=== PATIENT | female | born 1975 | race Caucasian/White ===

== ENCOUNTER 2022-05-16 05:41 | Outpatient (CLI) | payer BC ==
[~2022-05-16] VITALS: Ht 165.1 cm; Wt 62.7 kg
[2022-05-20] MEDS ORDERED: LEVO75TA PO (12:13)
[2022-05-20] MEDS ORDERED: VILA20TA PO (12:13)
[2022-05-20] MEDS ORDERED: FENO145T26 PO (12:13)
[2022-05-20] MEDS ORDERED: TRIA1TAB3 PO (12:13)
[2022-05-20] MEDS ORDERED: MINO100T10 PO (12:13)
== END 2022-05-20 12:15 | disposition home or self-care (01) ==
LOC: PREOP 05:41
PROVIDERS: ATTEND Internal Medicine
DX: Z01.818 Encounter for other preprocedural examination (principal)

== ENCOUNTER 2022-05-24 07:50 | Day surgery (SDC) | payer BC ==
--- NOTE | 2022-05-10 10:53 | HISTORY AND PHYSICAL ---
DATE OF SERVICE: 05/24/2022 COLONOSCOPY HISTORY AND PHYSICAL HISTORY OF PRESENT ILLNESS: The patient is a 77-year-old white female referred by Dr. Griffith for consideration for colonoscopy. I had performed colonoscopy on her in 07/2012 at which time, she had no evidence for neoplasia. She is not aware of any family history for colon cancer. There is a strong family history for breast cancer. Her mother at the age of 87 with breast cancer and has had a sister in her late 50s, who had bilateral breast cancer. She reports some intermittent right lower quadrant abdominal pain with some intermittent bloating. She has noted no melena or bright red blood per rectum. She has always been thin and reports no change in weight and energy level has been at baseline. PAST MEDICAL HISTORY: Significant for stable multiple sclerosis. She reports no significant neurological deficits. As I recall longstanding and disconjugate gaze predating her diagnosis of multiple sclerosis. She has had longstanding anxiety, but does not take any medication for this. Currently, her only medication is gabapentin for neuropathic symptoms attributed to her multiple sclerosis. FAMILY HISTORY: As noted in the HPI. 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 She is and her from colon cancer. PAST SURGICAL HISTORY: She reports no past surgeries. REVIEW OF SYSTEMS: CONSTITUTIONAL: Denies night sweats, chills, fever, change in weight. PULMONARY: Denies cough, wheezing or shortness of breath. CARDIOVASCULAR: Denies orthopnea, PND, pedal edema, chest discomfort, or palpitation. GASTROINTESTINAL: As noted in the HPI. PHYSICAL EXAMINATION: GENERAL: Reveals an anxious white female, who appeared to be in no acute distress. VITAL SIGNS: Blood pressure 132/96, weight 92 pounds, which is up 1.2 pounds from nearly 10 years ago. HEENT: Other than disconjugate gaze was unremarkable. Sclerae nonicteric. CHEST: Clear. CARDIOVASCULAR: Reveals a regular rate and rhythm without murmur, S3 or S4. ABDOMEN: Soft, supple without mass, organomegaly or tenderness. No bruits noted. She is thin with no evidence for distention. EXTREMITIES: Reveal no cyanosis, clubbing or edema. ASSESSMENT AND PLAN: The patient is very anxious about colonoscopy, wishing not to go through with the procedure if possible considering no major risk factors in the past, normal colonoscopy 9 years ago. We will obtain stool for occult blood. If it is negative, we will hold off on recommendation. If it is positive, the patient will consent to proceeding. I thank you for the referral of this pleasant lady. DocumentID: [id number] Dictated Date: 05/10/2022 00:00:00 Oven Stripper Date: 05/10/2022 00:42:00 Dictated By: MILLER MYERS MD
--- NOTE | 2022-05-10 11:07 | HISTORY AND PHYSICAL ---
DATE OF SERVICE: 05/24/2022 COLONOSCOPY HISTORY AND PHYSICAL DATE OF ADMISSION: 05/24/2022 HISTORY OF PRESENT ILLNESS: The patient is a 46-year-old white female referred for her first screening colonoscopy. She reports her father has had significant problems with diverticulitis. She has had mother with bowel issues, sounds suspicious for irritable bowel as well as one brother. She is not aware if anybody has been diagnosed with colon polyps and she is not aware of any colon cancer in the family. She denies bright red blood per rectum, melena, change in bowel habits or change in weight, intermittently getting a little bit worse. She does not feel that she does empty completely in regard to bowel movements, sometimes having to strain, but does not typically pass hard stool. PAST SURGICAL HISTORY: Significant for hysterectomy. She denies any urinary incontinence problems. PAST SURGICAL HISTORY: Significant for total abdominal hysterectomy for benign reasons. PAST MEDICAL HISTORY: Significant for hypertriglyceridemia and essential hypertension as well as major depressive disorder and hypothyroidism. FAMILY HISTORY: Father living at the age of 80 with a history of diverticulitis. Mother living at the age of 77 with what sounds like irritable bowel syndrome. One brother 53 with no health problems and one sister 51 with similar bowel issues, possible IBS. No reported Crohn's or ulcerative colitis and no colon cancer. MEDICATIONS ON ADMISSION: Include by Viibryd 20 mg daily, Synthroid 75 mcg daily, triamterene/hydrochlorothiazide 37.5/25, minocycline daily and fenofibrate daily. SOCIAL HISTORY: She is employed at [employer]. She has no past smoking or drinking history. REVIEW OF SYSTEMS: CONSTITUTIONAL: Denies night sweats, chills, fever or change in weight. GASTROINTESTINAL: As noted in the HPI. PULMONARY: Denies cough, wheezing or shortness of breath. CARDIOVASCULAR: Denies chest discomfort, orthopnea, PND or pedal edema. PHYSICAL EXAMINATION: GENERAL: Reveals a pleasant, normal white female in no acute distress. VITAL SIGNS: Blood pressure 130/82. HEENT: Unremarkable. Sclerae nonicteric. CHEST: Clear to auscultation. CARDIOVASCULAR: Reveals a regular rate and rhythm without murmur, S3 or S4. ABDOMEN: Soft, supple without mass, organomegaly or tenderness. Bowel sounds positive. No bruits noted. EXTREMITIES: Reveal no cyanosis, clubbing or edema. ASSESSMENT AND PLAN: The patient is being set up for screening colonoscopy her first. Prep instructions were given and questions were answered. Tension on digital rectal evaluation for any evidence for rectocele. She does have risk factors and a history suggesting the possibility of rectocele with pocketing of stool. DocumentID: [id number] Dictated Date: 05/10/2022 00:00:00 Senior Talent Management Consultant Date: 05/10/2022 03:45:00 Dictated By: MILLER MYERS MD [facility]
[~2022-05-24] VITALS: Ht 165.1 cm; Wt 62.7 kg
[~2022-05-24 07:50] MED LIST: FENO145T26 PO; LACTATED RINGERS 1,000 ML IV STA; LEVO75TA PO; MINO100T10 PO; TRIA1TAB3 PO; VILA20TA PO
[2022-05-24 07:55] VITALS: BP 110/78
--- NOTE | 2022-05-24 07:56 | Pre-Op Note & Conscious Sedat ---
Pre-Operative Progress Note Date H&P Reviewed: May 24, 2022 Time H&P Reviewed: 07:55 History & Physical: H&P Reviewed, Patient Examed, No changes noted Pre-Op Diagnosis: screening colon Conscious Sedation Pre-Proced ASA Score 2 For ASA 3 and 4: Consider anesthesia and medical clearance. Also, for patients with a history of failed moderate sedation consider anesthesia. Airway Lungs Heart ASA score ASA 1: a normal healthy patient ASA 2: a patient with a mild systemic disease (mid diabetes, controlled hypertension, obesity ASA 3: a patient with a severe systemic disease that limits activity (angina, COPD, prior Myocardial infarction) ASA 4: a patient with an incapacitating disease that is a constant threat to life (CHF, renal failure) ASA 5: a moribund patient not expected to survive 24 hrs. (ruptured aneurysm) ASA 6: a declared brain- patient whose organs are being harvested. For emergent operations, add the letter E after the classification Mallampati Classification Grade 1 Sedation Plan Analgesia, Amnesia, Plan communicated to team members, Discussed options with patient/fam, Discussed risks with patient/fam The patient is an appropriate candidate to undergo the planned procedure, sedation, and anesthesia. The patient immediately re-assessed prior to indication. MILLER MYERS MD May 24, 2022 07:56
[2022-05-24] MEDS ORDERED: PROPOFOL INJECTION 50 ML IV ONE (08:03)
[2022-05-24 08:30] VITALS: BP 88/54
--- NOTE | 2022-05-24 08:30 | Progress Note-Post Operative ---
Post-Procedure Note Physician (s)/Professional System Administrator (s) Physician MILLER MYERS MD Pre-Procedure Diagnosis Pre-Procedure Diagnosis: screening colon Post-Procedure Diagnosis Post-operative diagnosis: Prior to undergoing colonoscopy digital rectal evaluation was performed. Anal sphincter tone was normal and the perianal reflex was intact. No abnormalities noted on digital inspection anal canal or distal rectal vault. The colonoscope was then inserted into the rectum and under direct visualization advanced to the cecum. The cecum was identified by identification of the ileocecal valve and cecal strap. Photographic documentation was obtained. Quality of the prep was good. A careful inspection was made as the colonoscope was withdrawn. Findings: There were no evidence for internal or external hemorrhoids. The rectum sigmoid colon descending colon splenic flexure transverse colon hepatic flexure ascending colon and cecum were unremarkable with no evidence for neoplasia or diverticular disease. Assessment: Normal colonoscopy to the cecum. Would advocate consideration for repeat screening colonoscopy in 10 years. CC: Dr. Krystle Joseph. MILLER MYERS MD May 24, 2022 08:30
[2022-05-24 08:35] VITALS: BP 90/55
[2022-05-24 08:55] VITALS: BP 88/54
--- NOTE | 2022-05-24 12:38 | Anesthesia-General Post-Op ---
MAC Patient Condition Mental Status/LOC: Same as Preop Cardiovascular: Satisfactory Nausea/Vomiting: Absent Respiratory: Satisfactory Pain: Controlled Complications: Absent Post Op Complications Complications None Follow Up Care/Instructions Patient Instructions None needed. Anesthesiology Discharge Order Discharge Order Patient is doing well, no complaints, stable vital signs, no apparent adverse anesthesia problems. No complications reported per nursing. CORNELL ORR CRNA May 24, 2022 12:38
== END 2022-05-24 09:02 | disposition home or self-care (01) ==
LOC: ENDO 07:50
PROVIDERS: ATTEND Internal Medicine
DX: Z12.11 Encounter for screening for malignant neoplasm of colon (principal)